=== PATIENT | female | born 1985 | race African-American/Black ===

== ENCOUNTER 2021-10-08 19:04 | Emergency (ER) | payer SELFPAY | END 2021-10-08 20:01 | disposition home or self-care (01) | LOC: MADERS 19:04 → EEVIPCON 19:04 → MADERS 20:01 | DX: N76.0 Acute vaginitis (principal); H10.9 Unspecified conjunctivitis ==

== ENCOUNTER 2021-10-11 10:32 | Emergency (ER) | payer MEDICAID, SELFPAY | END 2021-10-11 11:55 | disposition home or self-care (01) | LOC: MADERS 10:32 | DX: T78.40XA Allergy, unspecified, initial encounter (principal); H10.33 Unspecified acute conjunctivitis, bilateral; I10 Essential (primary) hypertension; F17.210 Nicotine dependence, cigarettes, uncomplicated | CPT/HCPCS: 96372; 99282; J1040 ==